=== PATIENT | male | born 1945 | race Caucasian/White ===

== ENCOUNTER → 2016-08-12 | Outpatient (CLI) | payer OTHER ==
--- NOTE | 2016-08-12 17:37 | DX ---
PA and Lateral Chest on August 12, 2016 Clinical Indications: Cough. Findings: The lungs are clear, and no masses are found. The heart and pulmonary vessels are normal. There are no pleural effusions and no pneumothorax. The bones exhibit degenerative changes of the spine. Impression: No acute cardiopulmonary process.
== END ==
LOC: FIMAGING 15:26
PROVIDERS: ATTEND Otolaryngology
DX: R05 Cough (principal)

== ENCOUNTER 2017-10-11 19:38 | Emergency (ER) | payer OTHER ==
[2017-10-11 19:51] VITALS: RESP 18; TEMP 97.9
--- NOTE | 2017-10-11 20:05 | EDPHY ---
H & P Time Seen by Provider: 10/11/17 19:48 HPI/ROS: This patient was working at home doing woodworking with his table saw when the piece of wood caught pulled finger into the soft with a laceration to the distal phalanx of the left 2nd/index finger moderate bleeding that slowed with direct pressure. He reports moderate pain. He denies any other associated symptoms. He drove himself here by private vehicle for evaluation. ROS: Neuro: He has noticed numbness or tingling Integumentary: He does not feel foreign body sensation Musculoskeletal: No other injuries. No difficulty moving the affected finger 5 point ROS is otherwise negative. Past Medical/Surgical History: Immunizations are up today Smoking Status: Former smoker Physical Exam: Physical Exam Vital signs are normal. General: No acute distress Eyes: Pupils equal and react to light. Extraocular motions are intact. Lungs: No respiratory distress. Cardiac: Brisk capillary refill is intact throughout. Skin: No rash or pallor. Extremities: Atraumatic normal except for left 2nd finger Left 2nd finger: Patient has a laceration 2 cm in length gaping open that extends from palmar aspect to dorsal through the nail bed to the distal phalanx. Neuro: Alert. The patient has loss of 2 point discrimination beyond the wound on the radial aspect of the distal phalanx. Two-point discrimination is maintained on the ulnar aspect of the distal phalanx. Initial differential diagnosis: Laceration, open fracture, digital nerve injury Constitutional: Initial Vital Signs Temperature (C) 36.6 C 10/11/17 19:49 Heart Rate 78 10/11/17 19:49 Respiratory Rate 18 10/11/17 19:49 Blood Pressure 175/89 H 10/11/17 19:49 O2 Sat (%) 97 10/11/17 19:49 O2 Delivery Mode Room Air Allergies/Adverse Reactions: No Known Allergies Allergy (Verified 10/11/17 19:49) Home Medications: Medication Instructions Recorded Amoxicillin/Clavulanate Pot 875 mg PO BID #14 tab 10/11/17 [Augmentin 875 MG TAB (*)] MDM/Departure - MDM Diagnostics: Three view finger x-ray: Comminuted fracture of the distal phalanx by my interpretation Imaging Results: Imaging Impressions Finger X-Ray 10/11/17 20:00 Impression: Acute comminuted fracture distal phalanx left index finger. Imaging: I viewed and interpreted images myself Procedures: Digital block: After verbal consent, using a 50 50 mix of 0.5% Marcaine 2% plain lidocaine, 27 gauge needle, chlorhexidine scrub under sterile conditions- 3 injections were administered to the base of the affected finger, 8 mL with good effect. Patient tolerated this well. There were no complications. The wound is 2 cm gaping open described in physical exam The wound was copiously irrigated with saline. The wound was explored for foreign bodies and none were found. The wound was prepped and draped in the normal sterile fashion. The edges were reapproximated using 4 0 Prolene on a P3 needle -7 running sutures with good hemostasis and cosmesis on the plantar aspect. The no but has extensive damage and cannot be cosmetically approximated. I placed 2 sutures in the dorsal aspect of the nail bed to closer approximate the wound. There is no exposed bone. The patient tolerated the procedure well. There were no complications. Patient is placed in tube gauze and Alumafoam splint. Medications Given: Discontinued Medications Cefazolin Sodium 1 gm/ Sodium (Chloride) 100 mls @ 400 mls/hr IV EDNOW ONE PRN Reason: Protocol Stop: 10/11/17 20:29 Last Admin: 10/11/17 20:30 Dose: 100 mls ED Course/Re-evaluation: Discussion: Patient with open fracture from its circular saw to the distal phalanx of his finger with nail bed injury and injury to the radial aspect of the distal digital nerve with loss of 2 point discrimination. Counseled regarding this. Explain the risk of infection He is given IV Ancef 1 g after thorough irrigation of the wound with a L saline following the digital block. He tolerated that well. Will plan to send him home with the Alumafoam splint on top of the dressing and then a stack splint for placement a few days from now when he takes off the bulky dressing. I instructed him to follow up with our hand specialist for a recheck. He is given a copy of his x-ray to take to that appointment. He understands the need to return emergency department should he developed redness discharge or other concerns for infection. Answered all the patient's questions prior to discharge home. - Depart Disposition: Home, Routine, Self-Care Clinical Impression: Sensory deficit to finger Open finger fracture Qualifiers: Encounter type: initial encounter Finger: index finger Phalanx: distal Fracture alignment: nondisplaced Laterality: left Qualified Code(s): S62.661B - Nondisplaced fracture of distal phalanx of left index finger, initial encounter for open fracture Finger laceration Qualifiers: Encounter type: initial encounter Finger: index finger Damage to nail status: with damage Foreign body presence: without foreign body Laterality: left Qualified Code(s): S61.311A - Laceration without foreign body of left index finger with damage to nail, initial encounter Condition: Good Instructions: Finger Fracture (ED), Finger Laceration (ED) Additional Instructions: Diagnosis: Open finger fracture with finger laceration You received 1 g of IV Ancef antibiotic tonight. He can start the oral antibiotic tomorrow. Plan: Ibuprofen Tylenol for pain Augmentin antibiotic Keep current dressing in place for the next 2 days, then soak up with warm soapy water Clean the wound daily thereafter with warm soapy water, apply a bandage and where the stack splint when up and about. Call Dr. Crouch, hand specialist for further evaluation. Bring the copy of the x- ray to that appointment. Return here to the emergency department if he developed redness to the finger, discharge, fevers or other concerns for infection. Prescriptions: Amoxicillin/Clavulanate Pot [Augmentin 875 MG TAB (*)] 875 mg PO BID #14 tab Referrals: Tai Vides [Primary Care Provider] - As per Instructions Krupa Mccurdy MD [Medical Doctor] - As per Instructions
[2017-10-11] MEDS ORDERED: ceFAZolin 1 GM in NS 100 ML IV ONE (20:15)
[2017-10-11] MEDS ORDERED: ceFAZolin 1 GM VIAL ONE (20:26)
[2017-10-11 21:06] VITALS: BP 154/81; PULSE 91; O2SAT 96
== END 2017-10-11 21:05 | disposition home or self-care (01) ==
LOC: CED 19:38
PROC: 0HQGXZZ Repair Left Hand Skin, External Approach (ICD-10-PCS; principal; 2017-10-11)
DX: S62.661A Nondisplaced fracture of distal phalanx of left index finger, initial encounter for closed fracture (principal); S61.311A Laceration without foreign body of left index finger with damage to nail, initial encounter; R29.818 Other symptoms and signs involving the nervous system; Z87.891 Personal history of nicotine dependence; W31.1XXA Contact with metalworking machines, initial encounter; Y92.009 Unspecified place in unspecified non-institutional (private) residence as the place of occurrence of the external cause; Y99.8 Other external cause status; Y93.89 Activity, other specified
CPT/HCPCS: 73140-PO; 96374; J0690; L3925

== ENCOUNTER 2018-07-17 20:27 | Emergency (ER) | payer OTHER ==
--- NOTE | 2018-07-17 20:37 | EDPHY ---
H & P Time Seen by Provider: 07/17/18 20:37 HPI/ROS: CHIEF COMPLAINT: Foot injury HISTORY OF PRESENT ILLNESS: This is a generally healthy 72-year-old male, with the exception of some lower extremity neuropathy, who presents concerned about a possible puncture wound to the bottom of his left foot. He was walking in a chicken [place] and a piece of fence wrap pierced the bottom of his shoe. He was wearing black tennis tight shoes with a black rubber bottom. He felt the metal touch the bottom of his foot but does not know whether it punctured the skin. He was able to pull the metal out of his shoe sole. His tetanus is up-to-date. REVIEW OF SYSTEMS: A ten system review of systems was performed and is negative with the exception of the items mentioned in the HPI. Past medical history: Idiopathic lower extremity neuropathy Past surgical history: Removal of plantar warts from the bottom of his left foot Social history: He lives with his . He works with a [employer] in [employer]. He does not use tobacco products. General Appearance: Alert. Vital signs reviewed. Eyes: Pupils equal and round, no conjunctival injection, no discharge. Anicteric. ENT, Mouth: Mucous membranes are moist, no oropharyngeal erythema or edema. Neck: No lymphadenopathy, supple. Respiratory: Lungs are clear to auscultation; no wheezes, rales, or rhonchi. Cardiovascular: Regular rate and rhythm; no murmur, rub, or gallop. Gastrointestinal: Abdomen is soft and nontender, no masses or organomegaly, bowel sounds normal. Skin: Warm and dry, no rashes on exposed skin, normal color. No pain with palpation of the plantar surface of the left foot. Back: Nontender to palpation over the thoracolumbar spine. No CVAT. Extremities: Left foot--multiple flat lesions that appear to be warts on the bottom of his left foot. The foot was closely examined with the help of a light and magnification and I do not see a puncture wound. Neurological: Alert and oriented. Moving all four extremities easily and equally. Full active range of motion of all toes of his left foot and of the left ankle. No pain with range of motion of the left foot and ankle. Sensation slightly diminished to light touch over the bottom of his left foot. Psychiatric: Normal affect. - Personal History Tetanus Vaccine Date: 2015 - Medical/Surgical History Hx Asthma: No Hx Chronic Respiratory Disease: No Hx Diabetes: No Hx Cardiac Disease: No Hx Renal Disease: No Hx Cirrhosis: No Hx Alcoholism: No Hx HIV/AIDS: No Hx Splenectomy or Spleen Trauma: No Other PMH: appy. tonsils. hemmrhoidectomy - Social History Smoking Status: Former smoker Constitutional: Initial Vital Signs Temperature (C) 36.6 C 07/17/18 20:38 Heart Rate 89 07/17/18 20:38 Respiratory Rate 16 07/17/18 20:38 Blood Pressure 152/72 H 07/17/18 20:38 O2 Sat (%) 94 07/17/18 20:38 O2 Delivery Mode Room Air Allergies/Adverse Reactions: No Known Allergies Allergy (Verified 10/11/17 19:49) Home Medications: Medication Instructions Recorded NK [No Known Home Meds] 07/17/18 Medical Decision Making ED Course/Re-evaluation: I do not think that this piece of metal appears to the skin of his foot. I examined the fence wrap wire and it is a little over a mm in diameter. It would take some force for this to conde his foot. We discussed the fact that this wire did go through the bottom of his shoe and that there is a risk for a pseudomonal infection if his skin was violated. I inspected his foot carefully and I do not think that he had a puncture wound. He does not want to take antibiotics and I think that that is reasonable. We carefully reviewed the signs of infection that should prompt him to be immediately be re-evaluated and I have stressed the importance of him examining the bottom of his foot frequently to watch for signs of infection. His accompanies him and she will help with this. He does have mild neuropathy for unknown reason--he is not diabetic. He does not think that any of the metal broke off and I agree with him. I do not suspect retained foreign body. Differential Diagnosis: I considered a differential diagnosis that includes but is not limited to plantar puncture wound, retained foreign body, skin bruising, and potential infection. Departure - Departure Disposition: Home, Routine, Self-Care Clinical Impression: Injury of foot, left Qualifiers: Encounter type: initial encounter Qualified Code(s): S99.922A - Unspecified injury of left foot, initial encounter Condition: Good Instructions: Puncture Wound (ED) Additional Instructions: I am giving you information about puncture wounds, but I do not think that the metal pierced the skin of your foot. Watch the bottom of your foot carefully. If you see any signs of infection-- fever, redness, swelling, increasing pain, purulent drainage-- you need to be re -evaluated immediately. Referrals: Tai Vides [Primary Care Provider] - As per Instructions
[2018-07-17 20:42] VITALS: BP 152/72
== END 2018-07-17 20:59 | disposition home or self-care (01) ==
LOC: CED 20:27
DX: S99.922A Unspecified injury of left foot, initial encounter (principal); X58.XXXA Exposure to other specified factors, initial encounter; Y92.9 Unspecified place or not applicable; Y93.89 Activity, other specified; Y99.9 Unspecified external cause status

== ENCOUNTER → 2018-10-24 | Outpatient (CLI) | payer OTHER | LOC: EMCIMAGING 08:40 | PROVIDERS: ATTEND Family Medicine | DX: R19.4 Change in bowel habit (principal) | CPT/HCPCS: 76705-PN ==